=== PATIENT | male | born 1980 | race Caucasian/White ===

== ENCOUNTER 2016-07-12 21:11 | Emergency (ER) | payer OTHER ==
[2016-07-12] MEDS ORDERED: Diazepam TAB(*) 5 MG PO ONE (21:48)
[2016-07-12] MEDS ORDERED: Morphine INJ* 4 MG/ML 1 ML CARPUJECT IV ONE (22:19)
[2016-07-12] MEDS ORDERED: methylPREDNISolone SOD 40 MG* 1 ML VIAL IV ONE (22:19)
--- NOTE | 2016-07-12 22:33 | ED ---
Back Pain - HPI Summary HPI Summary: 36M presents with back pain today. Was lifting a 600 lb drum that normal does for work. He stays immediately he felt pain across his lower back that does not radiate anywhere. He denies any loss of bowel or bladder or saddle anaesthesia. The pain is across lower back and not radiate anywhere. He denies any numbness or tingling or pain into the legs. He has had back pain in the past 2 years ago but never this pain. He has take 2 flexeril, 2 800mg ibuprofen, and 2 norcos without relief. - History of Current Complaint Chief Complaint: EDBackInjuryPain Stated Complaint: BACK INJURY Time Seen by Provider: 07/12/16 21:37 Pain Intensity: 10 - Allergies/Home Medications Allergies/Adverse Reactions: Allergies Allergy/AdvReac Type Severity Reaction Status Date / Time No Known Allergies Allergy Verified 02/21/15 11:03 PMH/Surg Hx/FS Hx/Imm Hx Endocrine/Hematology History: Denies: Hx Anticoagulant Therapy Cardiovascular History: Denies: Hx Hypertension Infectious Disease History: No Infectious Disease History: Denies: Traveled Outside the [place] in Last 30 Days - Family History Known Family History: Negative: Cardiac Disease - Social History Alcohol Use: None Substance Use Type: Reports: None Smoking Status (MU): Never Smoked Tobacco Review of Systems Negative: Fever Negative: Chest Pain Negative: Shortness Of Breath Positive: Myalgia - back pain All Other Systems Reviewed And Are Negative: Yes Physical Exam Triage Information Reviewed: Yes Vital Signs On Initial Exam: Initial Vitals Temp Pulse Resp BP Pulse Ox 98.2 F 76 16 137/87 100 07/12/16 21:11 07/12/16 21:11 07/12/16 21:11 07/12/16 21:11 07/12/16 21:11 Vital Signs Reviewed: Yes Appearance: Positive: Well-Appearing Skin: Positive: Warm, Dry Head/Face: Positive: Normal Head/Face Inspection Eyes: Positive: Normal, Conjunctiva Clear ENT: Positive: Normal ENT inspection, Pharynx normal, TMs normal Respiratory/Lung Sounds: Positive: Clear to Auscultation, Breath Sounds Present Cardiovascular: Positive: Normal, RRR Musculoskeletal: Positive: Limited @ - back due to pain, Other - tender across lower back with midline tenderness, neg SLR, good pulses Diagnostics - Vital Signs Vital Signs Temp Pulse Resp BP Pulse Ox 03/06/17 22:28 18 07/12/16 21:52 20 07/12/16 21:11 98.2 F 76 16 137/87 100 - Laboratory Lab Statement: Any lab studies that have been ordered have been reviewed, and results considered in the medical decision making process. - Radiology back Xray Interpretation: No Acute Changes Radiology Interpretation Completed By: Radiologist Re-Evaluation - Re-Evaluation First Eval Re-Evaluation Time: 22:00 Change: Unchanged Comment: still 02/15 Second Eval Re-Evaluation Time: 22:45 Change: Improved Comment: still 12/16 Third Eval Re-Evaluation Time: 23:36 Change: Improved Comment: 08/16 Back Pain Course/Dx - Course Course Of Treatment: 36M presents with sudden onset of lower back pain while trying to lift something today, tried multiple pain medication without relief, no pain down legs, patient appears in extreme pain on exam, tender diffusely across lower back, xray normal, took multiple pain medication until patient able to ambulate again, sent script for narcoctic due to extreme pain, muscle relaxer, told to follow up with primary, patient understands and agrees with plan - Diagnoses Differential Diagnosis/HQI/PQRI: Positive: Herniated Disc, Strain, Sprain Provider Diagnoses: Back pain Discharge - Discharge Plan Condition: Good Disposition: HOME Prescriptions: Cyclobenzaprine TAB* [Flexeril TAB*] 10 mg PO TID PRN #9 tab PRN Reason: Pain Methylprednisolone [Medrol Dosepak 4 MG*] 4 mg PO .SEE [employer] INSTRUCTION #1 packet oxyCODONE/Acetamin 5/325 MG* [Percocet 5/325 TAB*] 1 tab PO Q6H PRN #12 tab MDD 4 PRN Reason: Pain Patient Education Materials: Acute Low Back Pain (ED) Referrals: David Red MD [Primary Care Provider] - Additional Instructions: Follow directions on package for Medrol pack Take muscle relaxers three times a day for 3 days Use ibuprofen for pain every 6 hours and narcotic every 6 hours for break through pain increase fiber intake with narcotic use ice/heat area, move as much as possible Follow up with primary within 5 days Return to ED if unable to ambulate or develop any new or worsening symptoms
[2016-07-12] MEDS ORDERED: HYDROmorphone INJ* 1 MG/ML CARPUJECT SYRINGE IV SLOW PU ONE (22:55)
[2016-07-12] MEDS ORDERED: HYDROmorphone INJ* 1 MG/ML CARPUJECT SYRINGE ONE (22:57)
--- NOTE | 2016-07-12 23:04 | RAD ---
INDICATION: Back pain COMPARISON: None TECHNIQUE: Routine PA, lateral, and oblique imaging was performed . FINDINGS: Bones: There are no acute bony findings. There are no significant osteoarthritic findings. Alignment: There is minimal levoscoliosis and lumbar straightening. Alignment is otherwise normal Disc spaces: The disc spaces are well-maintained Soft tissues: There are no soft tissue abnormalities. IMPRESSION: NO ACUTE BONY FINDINGS
[2016-07-12] MEDS ORDERED: oxyCODONE/Acetamin 5/325 MG* TAB PO ONE (23:35)
[2016-07-13 00:04] VITALS: BP 102/70
== END 2016-07-13 00:54 | disposition home or self-care (01) ==
LOC: ED 21:11
DX: M54.9 Dorsalgia, unspecified (principal)
CPT/HCPCS: 72110; 96374; 99284; A9270-GY; J1170; J2270; J2920